=== PATIENT | male | born 1985 | race Caucasian/White ===

== ENCOUNTER 2022-09-15 23:20 | Emergency (ER) | payer OTHER ==
[~2022-09-15] VITALS: Ht 167.6 cm; Wt 99.8 kg
[2022-09-15 23:30] VITALS: BP_SYST 146
[2022-09-16] MEDS ORDERED: KETOROLAC TROMETHAMINE 15 MG VIAL IM ONE (00:30)
[2022-09-16] MEDS ORDERED: IBUP-1969 PO (01:24)
[2022-09-16 01:38] VITALS: BP_SYST 146
== END 2022-09-16 01:38 | disposition home or self-care (01) ==
LOC: SED 23:20
DX: J02.9 Acute pharyngitis, unspecified (principal); H92.03 Otalgia, bilateral; Z20.822 Contact with and (suspected) exposure to COVID-19
CPT/HCPCS: 99283; 87426; 36415; 87804 ×2; 96372; J1885